=== PATIENT | male | born 2000 | race Caucasian/White ===

== ENCOUNTER 2024-05-17 16:44 | Emergency (ER) | payer BC, SELFPAY ==
--- NOTE | ~2024-05-17 | XR_ITS ---
EXAMINATION: XR HAND, RIGHT CLINICAL INFORMATION: Fourth/fifth metacarpal pain, injury. COMPARISON: None available. TECHNIQUE: PA, lateral, and oblique views of the right hand. FINDINGS: Displaced and angulated fracture of the mid shaft of the fifth metacarpal with surrounding soft tissue swelling. Otherwise, unremarkable. No unexpected radiopaque foreign bodies. XR/XR hand RT min 3V IMPRESSION: Displaced and angulated fracture of the fifth metacarpal. Electronically signed by: Trisha Cochran MD 05/17/2024 05:52 PM EDT
--- NOTE | ~2024-05-17 | XR_ITS ---
EXAMINATION: XR HAND, RIGHT CLINICAL INFORMATION: Reduction of fifth metacarpal fracture COMPARISON: Radiographs earlier today TECHNIQUE: PA, lateral, and oblique views of the right hand. FINDINGS: A fracture of the mid fifth metacarpal is again seen. There remains some overriding and ventral angulation of the distal fracture fragment slightly improved when compared to the prior. No other fractures are seen. Detail is obscured by the patient's splint XR/XR hand RT 2V IMPRESSION: Fifth metacarpal fracture with some improvement in alignment. Electronically signed by: Jaime Leal MD 05/17/2024 07:50 PM EDT
--- NOTE | 2024-05-17 16:54 | ED_ITS ---
HPI - Extremity Injury (Upper) General Chief Complaint: Extremity Injury, Upper Stated Complaint: hand inj Time Seen by Provider: 05/17/24 16:55 Source: patient Mode of arrival: ambulatory Limitations: no limitations History of Present Illness HPI narrative: Patient is a 23-year-old male right-hand dominant who presents emergency department for evaluation of a traumatic right hand injury. Reports prior to arrival, out of aggression he punched the shed resulting in localized swelling deformity and pain to the right dorsal aspect of his hand at the base of the 4th and 5th metacarpal. No numbness tingling or cold sensation to the hand Related Data Allergies Allergy/AdvReac Type Severity Reaction Status Date / Time No Known Allergies Allergy Verified 05/17/24 16:57 Review of Systems Review of Systems: Yes all other systems are reviewed and are negative [facility] Past Medical History Attestation statement: The following information was validated with the patient. Source: old records reviewed Social History Social History Smoked in Last 30 Days: No Use of substances other than those prescribed or required for medical reasons: No Advance Directives: No Advance Directives Information Provided: No Do you have a plan to hurt others: No Plan Physical Exam Vital Signs: Vital Signs: Last Vital Signs Temp 97.9 F 05/17/24 20:49 Pulse 90 05/17/24 20:49 Resp 18 05/17/24 20:49 BP 155/86 H 05/17/24 20:49 Pulse Ox 99 05/17/24 20:49 O2 Del Method Room Air 05/17/24 20:49 BMI result Body Mass Index 23.1 Appearance: Alert.?Oriented to person, place and time. No acute distress.?Normal affect.?? CVS: Heart sounds normal. Normal heart rate and rhythm.? Pulses normal.?? Respiratory: No respiratory distress.? Lung sounds clear to auscultation bilaterally?? Skin: Skin warm and dry.? Normal skin color.? Extremities: Swelling ecchymosis and hematoma to the dorsal aspect of the right hand over the 4th and 5th metacarpal. Decreased AROM to the digits. No wrist pain. 2+ radial pulse. Neuro: Moves all extremities spontaneously. Sensation intact bilaterally. Ambulates with normal steady gait. Medications Administered Discontinued Medications Generic Name Dose Route Start Last Admin Trade Name Freq PRN Reason Stop Dose Admin Lidocaine HCl 10 ml 05/17/24 17:53 05/17/24 18:56 Lidocaine Hcl 1 % Mpf 5 Ml Vial SUBCUT 05/17/24 17:54 10 ml ONCE ONE Administration Medical Decision Making Medical Decision Making MDM Narrative: Patient is a 23-year-old male presents emergency department for evaluation of traumatic right hand pain as per HPI. Extremity is neurovascularly intact distally. XR was obtained evaluate for fracture/dislocation; revealing a displaced 5th metacarpal shaft fracture with dorsal angulation of the distal portion. Attempted manual reduction with hematoma block as per procedural portion of this note, placed in an ulnar gutter splint, postreduction x-ray with some improvement in alignment. Patient tolerated procedure well, declined further attempt for reduction, will have close outpatient follow-up with orthopedics. Reviewed strict return precautions worrisome signs and symptoms that would warrant re-evaluation Differential Diagnosis Differential Diagnoses: The differential diagnosis associated with the presentation includes (Fracture, dislocation, contusion, hematoma, sprain) Independent Interpretation I performed an independent interpretation of an: Plain X-Ray (See narrative abo ve) Radiology Impression Discussion of test interpretation with radiology: I have reviewed the radiologist's reading. Radiologist Impression: XR/XR hand RT min 3V IMPRESSION: Displaced and angulated fracture of the fifth metacarpal. XR/XR hand RT 2V IMPRESSION: Fifth metacarpal fracture with some improvement in alignment. External Record Review External record reviewed: Outpatient record Prescription Management I considered prescription management with: Pain Medication (Acetaminophen/ibuprofen) Procedures Orthopedic Fracture Reduction Fracture #1: Time Out Performed: Yes Side: right Fracture Reduction Location: metacarpal Analgesia: hematoma block (Lidocaine 1%, aseptic technique, skin cleansed with chlorhexidine) Technique: direct manipulation and traction/counter-traction Post Reduction X-rays Demonstrate: other (Slight improvement, declines further reduction attempt) Post-reduction neuro exam: intact Post-reduction vascular exam: intact Splint Applied: Yes Patient Tolerated Procedure: well Discharge Plan Discharge Clinical Impression: Fracture of metacarpal shaft Qualifiers: Encounter type: initial encounter Metacarpal bone: fifth Fracture type: closed Fracture alignment: displaced Laterality: right Qualified Code(s): S62.326A - Displaced fracture of shaft of fifth metacarpal bone, right hand, initial encounter for closed fracture Patient Disposition: Home, Self-Care Instructions: Hand Fracture (ED) Additional Instructions: You can take ibuprofen 200 mg, 3 tablets (600mg) every 6-8 hours as needed for pain, in addition to Tylenol 500 mg, 2 tablets (1,000mg) every 4-6 hours as needed for pain, but not to exceed 3 doses daily (3,000mg).? As discussed the splint must remain in place at all times until you are re- evaluated by orthopedics. It can not get wet. If you develop worsening pain, swelling, numbness to the hand, you should seek re-evaluation Call the orthopedics office 1st thing tomorrow morning Referrals: Deng Tinsley MD [Primary Care Provider] - Sherry Rosenthal MD [Physician] - Stand Alone Forms: Work/School Release Interventions: ED Discharge Assessment Last Done: 05/17/24 20:49 Discharge Date/Time: 05/17/24 20:50 Print Language: Romanian
[2024-05-17 16:56] VITALS: BP 153/85; PULSE 91; RESP 18; TEMP 36.3; O2SAT 100; BMI 23.1
[2024-05-17] MEDS: Lidocaine HCl 1 % MPF 5 ML VIAL 10 ML SUBCUT (18:56)
[2024-05-17 20:31] VITALS: BP 155/86; PULSE 90; RESP 18; TEMP 36.6; O2SAT 99
[2024-05-17 20:49] VITALS: BP 155/86; PULSE 90; RESP 18; TEMP 36.6; O2SAT 99
== END 2024-05-17 20:50 | disposition home or self-care (01) ==
PROVIDERS: Emergency Provider Emergency Medicine; PCP Internal Medicine
DX: S62.326A Displaced fracture of shaft of fifth metacarpal bone, right hand, initial encounter for closed fracture (principal); M79.641 Pain in right hand; X58.XXXA Exposure to other specified factors, initial encounter; Y93.89 Activity, other specified; Y92.89 Other specified places as the place of occurrence of the external cause; Y99.8 Other external cause status
CPT/HCPCS: 26605; 73120; 73130; 99284

== ENCOUNTER 2024-05-20 10:17 | Outpatient (AMB) | payer BC, SELFPAY ==
[2024-05-20 10:29] VITALS: BMI 23.1
--- NOTE | 2024-05-20 10:29 | A.OFFVIS_ITS ---
Vital Signs 05/20/24 10:29 Height 5 ft 7 in Weight 147 lb 4 oz BMI 23.1 Intake Visit Reasons: FC- RT Fracture of metacarpal shaft Intake Note: Anton is a 23 year old right hand dominant female who presents today for an ED evaluation s/p displaced fracture of shaft of the fifth metacarpal bone on the right hand, DOI 05/17/24. Patient reports he punched a wall causing pain to his right 4th and 5th fingers. [facility] attemtped to reduce patient without success. Patient denies numbness and tingling. Patient states he has sensitivity at the fingertips. He is taking Ibuprofen and Tylenol for pain without relief. Patient states his pain has worsened since last night, waking him up through the night. Denies any prior injuries or surgeries to the right hand. Patient reports he vapes and smokes marijuana. Allergies No Known Allergies Allergy (Verified 05/20/24 10:34) HPI HPI FC- RT Fracture of metacarpal shaft: Details: Anton is a 23 year old right hand dominant man who presents for a right 5th metacarpal shaft fracture. He says he punched a shed wall on 05/17/24, injuring his hand. He was seen in the ED the same day where a reduction was attempted, and he was fitted for a splint. He presents today complaining of pain in his hand. He denies any numbness or tingling. He says he smokes cigarettes daily and Marijuana most nights before falling asleep. He says he is under a large amount of stress at home, which led to him punching a wall in frustration. He denies being involved in any fights. 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 Review of Systems Const All systems reviewed & are unremarkable except as noted in HPI and below Physical Exam Vital Signs: BMI result Body Mass Index 23.1 Const General: cooperative, healthy appearing and no acute distress Orientation/consciousness: patient oriented x3 HEENT Head: Yes normocephalic and Yes atraumatic Eyes EOM: EOMs intact bilaterally Resp Effort & Inspection: normal respiratory effort and able to speak in complete sentences Cardio Jugular venous distension: no JVD Skin General skin exam: turgor normal Rashes: no rashes Neuro General: patient oriented x3 Extrem Other: Evaluation of Right Upper Extremity: The patient is alert, oriented, and in no acute distress Sensation intact to the tips of all digits. He has some swelling & ecchymosis, in both the dorsal and volar aspect of the hand and fingers. We see some of the swelling and ecchymosis also over the middle and ring finger MCP joints. He also has some healing abrasions over the dorsal aspect of the middle ring and small fingers and dorsum of the hand. They appear to be healing with no evidence of infection and appeared to be partial-thickness. No lacerations or evidence of open injury near the fracture site. He does have some shortening of the small finger, and the fracture is palpable dorsally. Radiographs: 3 views of the right hand from 05/17/24 were reviewed by me today in clinic. They show a transverse 5th metacarpal shaft fracture, with with 100% dorsal translation of the distal shaft and a few mm of shortening Psych Appearance: grossly normal Affect: normal affect Attitude: cooperative Assessment & Plan Assessment & Plan (1) Fracture of shaft of fifth metacarpal bone of right hand: Code(s): S62.326A - Displaced fracture of shaft of fifth metacarpal bone, right hand, initial encounter for closed fracture Category: Medical Plan Assessment & Plan: 1. Right 5th metacarpal shaft fracture, with 100% dorsal translation of the mid shaft fracture and a few mm of shortening From a punching injury, DOI: 05/17/24 I educated him about this condition I discussed operative and non-operative treatment options, and recommend operative treatment. The patient would like to proceed with surgery The risks and benefits of operative treatment were discussed with the patient and the patient wishes to proceed with surgery. These risks include, but are not limited to risk of damage to blood vessels, nerves, tendons, infection, recurrence, incomplete relief of preoperative symptoms, persistent pain, possible need for further surgery and the risks associated with regional blocks and anesthesia. The plan is to take the patient to the operating room sometime on 05/21/24 for the following procedures: 1. Right 5th metacarpal CRPP vs ORIF, under general All of the preoperative paperwork including the consent was reviewed today. All the patient's questions were answered. The patient understands that they will be contacted by our surgery specialist soon to schedule this procedure He denies Diabetes, blood thinners, asthma, heart, lung, kidney issues He smokes cigarettes and Marijuana daily. I explained the effects of smoking on wound/bone healing, and recommend they stop smoking while healing. They expressed understanding He was placed in a new splint today. Scribed for Sherry Rosenthal MD by Jame Jin, medical education manager, on 05/20/24 at 10:40 AM, EST. Coding Level of Care Code New Pt Level 4 (57933) Diagnoses Fracture of shaft of fifth metacarpal bone of right hand S62.326A
== END 2024-05-20 11:15 | disposition home or self-care (01) ==
PROVIDERS: PCP Internal Medicine; Visit Provider Orthopaedic Surgery
DX: S62.326A Displaced fracture of shaft of fifth metacarpal bone, right hand, initial encounter for closed fracture (principal); W22.09XA Striking against other stationary object, initial encounter
CPT/HCPCS: 99204

== ENCOUNTER → 2024-05-20 10:17 | Outpatient (BNVA) | payer BC, SELFPAY | PROVIDERS: PCP Internal Medicine; Visit Provider Orthopaedic Surgery ==

== ENCOUNTER 2024-05-21 06:43 | Day surgery (SDC) | payer BC, SELFPAY ==
--- NOTE | 2024-05-20 13:25 | HO.ANESPROP2 ---
Documented by User: Ashleigh Adam NP 05/20/24 13:26 HPI - Anesthesia Eval Consult details Narrative: 23yo M for Right 5th Metacarpal CRPP vs ORIF PMFSH Active Problems Active Problems: All Active Problems Fracture of shaft of fifth metacarpal bone of right hand (Acute) Past Medical History Medical History Smoker Social History Social History Tobacco use type: Smokeless Tobacco Smoked in Last 30 Days: Yes Use of substances other than those prescribed or required for medical reasons: Unknown Have you been hit, kicked, punched, or otherwise hurt by someone within the past year? 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 Allergies Allergy/AdvReac Type Severity Reaction Status Date / Time No Known Allergies Allergy Verified 05/20/24 10:34 Home Medications ?Medication ?Instructions ?Recorded ?Confirmed ?Last Taken ?Type No Known Home Meds 05/20/24 05/20/24 Unknown History Assessment and Plan Assessment Anesthesia Assessment: Chart Reviewed Documented by User: Rocio Chapin MD 05/21/24 08:45 PMFSH Past Medical History Medical History Smoker Family History Family history of problems with anesthesia: No Surgical History History of Problems with Anesthesia: No Social History Social History Tobacco use type: Smokeless Tobacco Smoked in Last 30 Days: Yes Use of substances other than those prescribed or required for medical reasons: Unknown Have you been hit, kicked, punched, or otherwise hurt by someone within the past year? 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 Allergies Allergy/AdvReac Type Severity Reaction Status Date / Time No Known Allergies Allergy Verified 05/20/24 10:34 Home Medications ?Medication ?Instructions ?Recorded ?Confirmed ?Last Taken ?Type No Known Home Meds 05/20/24 05/20/24 Unknown History Exam Airway Mallampati Class: II TM Dist: >3cm Neck ROM: Full Heart: rrr Lungs: cta Assessment and Plan Assessment Anesthesia Assessment: Anesthesia Plan Discussed Final Anesthetic Review Family History of Problems with Anesthesia: No History of Problems with Anesthesia: No NPO: Yes ASA Class: I Final Preanesthetic Review: No Changes in Pt Med Stat, Meds/Allgs Chart Reviewed, Consent Obtained/Reviewed and Anes Risks/Benef Reviewed Patient Risk: Low Procedure Risk: Low Anesthetic Plan Anesthetic Plan: MAC: Disposition: Standard PACU
[2024-05-21 06:55] VITALS: BP 153/82; PULSE 75; RESP 18; TEMP 36.9; O2SAT 99; BMI 23.2
[2024-05-21] MEDS: Lactated Ringers 1,000 ML 100 ML IVCONT (07:22)
--- NOTE | 2024-05-21 08:01 | MHC.SHP ---
Pre-Procedural Eval Section A - 24 Hr Update-Section A only Date of Service: 05/21/24 The patient is an INPATIENT: No Changes since office visit: No Cold of Flu in the past 2 weeks, No New Medical Problems, No Changes in Medication and No Patient answered all questions The patient has been examined within 24 hours of the surgical procedure. The History & Physical has been completed within 30 days and I have reviewed it.: Yes Section B - Complete if H&P > 30 days Chief Complaint: Displaced fracture of shaft of fifth metacarpal Allergies: Allergies Allergy/AdvReac Type Severity Reaction Status Date / Time No Known Allergies Allergy Verified 05/20/24 10:34 Plan I have reviewed the history and physical and performed a pertinent physical examination on my patient. No changes have occurred unless specified. Time Spent With Patient Time: Total time managing care of this patient today ____ minutes.
--- NOTE | 2024-05-21 08:01 | W.PM.OPN ---
Operative Note Operative Note Date of Service: 05/21/24 Narrative: Operative Note Narrative: Preop diagnosis: 1. Right 5th metacarpal shaft fracture Postop diagnosis: Same Procedure: 1. Right 5th Metacarpal shaft fracture open reduction internal fixation 2. Ulnar nerve block Surgeon: Sherry Rosenthal MD Business Coordinator: Nitish TITUS Anesthesia: General Anesthesia Findings: Metacarpal fracture Implants: 0.045 K-wire x1 Tourniquet time: None EBL: Minimal Specimen: None Drains: None Complications: None Disposition: Brought to the recovery room in stable condition Plan: Follow-up in 10-14 days for a wound check, postop radiographs and for placement in a short-arm finger spica cast incorporating just the small and ring finger at that time. Anticipate K-wire removal in 4-5 weeks based on interval bony healing Educate the patient that full fracture healing anticipated in approximately 8-12 weeks. Indications: The patient is 23 years old with displaced right 5th metacarpal shaft fracture . The risks and benefits of operative treatment, including but not limited to risk of damage to blood vessels, nerves, tendons, infection, recurrence, delayed or nonunion of fracture, persistent pain or numbness, incomplete resolution of preoperative symptoms, or need for further surgery were discussed with the patient and they wished to proceed with surgery. Procedure: Once consent was obtained patient was brought back to the operating suite and placed in the operating table in a supine position. . Perioperative antibiotics and general anesthesia was administered by the anesthesia team. A tourniquet was applied to the proximal aspect of the right upper extremity and the limb was prepped and draped in a standard surgical fashion. Tourniquet was not inflated during the case. The FluoroScan was used during the case to assist with our fracture reduction and placement of all implants. A closed reduction was attempted on the patient's right 5th metacarpal shaft fracture, but was not successful. I therefore elected to treat this with an open reduction internal fixation. 0.045 K-wire was placed through the head of the 5th metacarpal and advanced retrograde down the shaft to the fracture site. The limb was then elevated and exsanguinated with an Esmarch bandage and the tourniquet inflated for a total tourniquet time of 17 minutes. I made a 2.5 cm longitudinal incision centered over the dorsal aspect of the 5th metacarpal shaft fracture. The incision was made through the skin to the subcutaneous tissues using a 15. Blade. I then carefully dissected down to the level of the 5th metacarpal shaft fracture. The extensor tendons were retracted and protected. The shaft fracture was 100% displaced and the distal end of the fracture sitting in the interosseous muscle which was torn. An open reduction was performed after removal of interosseous muscle from the fracture site. I then advanced the 0.045 K-wire retrograde across the fracture site and down to the base of the 5th metacarpal. Fracture alignment was assessed both radiographically and clinically for both angular and rotational malalignment. Once satisfied with our fracture reduction and implant placement, the K-wire was bent and cut short and pin caps applied. Final fluoroscopic images were then obtained. The wound was copiously irrigated with normal saline. An ulnar nerve block was then performed by infiltrating about the ulnar nerve at the wrist with some 1% lidocaine with epinephrine for postop pain control. A Sterile dressing and dorsal blocking splint was applied. The patient appears to have tolerated the procedure well and with no complications. All digits were well vascularized at the conclusion of the case.
--- NOTE | 2024-05-21 09:08 | PC.NURSE ---
pt recieved a little of fluid anesthesia aware
[2024-05-21 10:48] VITALS: BP 137/77; PULSE 63; RESP 16; TEMP 37.1; O2SAT 100
[2024-05-21 10:50] VITALS: BP 145/79; PULSE 74; RESP 16; O2SAT 100
[2024-05-21 10:55] VITALS: BP 143/86; PULSE 68; RESP 16; O2SAT 100
[2024-05-21 11:00] VITALS: BP 136/84; PULSE 66; RESP 16; O2SAT 100
[2024-05-21 11:15] VITALS: BP 136/86; PULSE 68; RESP 16; TEMP 36.6; O2SAT 100
== END 2024-05-21 11:49 | disposition home or self-care (01) ==
PROVIDERS: PCP Internal Medicine; Visit Provider Orthopaedic Surgery
PROC: (CPT 26615; principal; 2024-05-21 08:40)
DX: S62.326A Displaced fracture of shaft of fifth metacarpal bone, right hand, initial encounter for closed fracture (principal); X58.XXXA Exposure to other specified factors, initial encounter; Y93.89 Activity, other specified; Y92.89 Other specified places as the place of occurrence of the external cause; Y99.8 Other external cause status; F17.210 Nicotine dependence, cigarettes, uncomplicated
CPT/HCPCS: 26615; J0131; J0690; J1100; J2003; J2004; J2405; J2704; J3010

== ENCOUNTER → 2024-05-21 06:43 | Outpatient (BNV) | payer BC, SELFPAY | PROVIDERS: PCP Internal Medicine; Visit Provider Orthopaedic Surgery | DX: S62.326A Displaced fracture of shaft of fifth metacarpal bone, right hand, initial encounter for closed fracture (principal) | CPT/HCPCS: 26615 ==

== ENCOUNTER 2024-06-03 11:57 | Outpatient (AMB) | payer BC, SELFPAY ==
--- NOTE | 2024-06-03 12:15 | A.OFFVIS_ITS ---
Intake Visit Reasons: PO RT 5th MC CRPP v ORIF 05/21/24 AR Intake Note: Anton is a 23 year old right hand dominant male who presents today post operatively s/p Right 5th Metacarpal shaft ORIF DOS: 05/21/24 w/ Dr Rosenthal. Patient reports he has been keeping his hand elevated daily, icing, and taking Tylenol and ibuprofen. He expresses daily intermittent pain, some days worse than other but mainly when he goes to bed is when it throbs the most. He says he is back at work and they have him move around a lot, he has been doing desk work and trying to have his co-workers help him. Allergies No Known Allergies Allergy (Verified 06/03/24 12:19) HPI HPI PO RT 5th MC CRPP v ORIF 05/21/24 AR: Details: Anton is a 23 year old right hand dominant man who returns S/P right 5th metaca rpal shaft ORIF, DOS: 05/21/24. He punched a shed wall on 05/17/24, injuring his hand. He presents today saying he is doing fine. He reports intermittent daily pain, but says this is worst at night when he feels it throbbing . He has been keeping his hand elevated and using ice & Tylenol for pain relief. He denies any numbness or tingling He says he smokes cigarettes daily and Marijuana most nights before falling asleep. He says he is under a large amount of stress at home. 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 He can bring his thumb, index, middle, and ring fingers closed to a fist and back to full extension. No tenderness about the fracture site with palpation about the ulnar side Abrasions over the MCP & PIP joints appear to be healing well Resolving ecchymosis Sensation is intact Cap refill is brisk Radiographs: 3 views of the right hand were taken and viewed by me today in clinic. They show a transverse 5th metacarpal shaft fracture, with satisfactory fracture reduction and position of the single K-wire Psych Appearance: grossly normal Affect: normal affect Attitude: cooperative Assessment & Plan Assessment & Plan (1) Fracture of shaft of fifth metacarpal bone of right hand: Code(s): S62.326A - Displaced fracture of shaft of fifth metacarpal bone, right hand, initial encounter for closed fracture Category: Medical Plan Assessment & Plan: 1. Right 5th metacarpal shaft fracture, S/P ORIF DOS: 05/21/24 From a punching injury, DOI: 05/17/24 The patient appears to be doing well post-operatively I educated him about the post-operative course I explained the signs and symptoms of infection, if the patient develops any new or worsening erythema, drainage, pain, or warmth they should contact the clinic or attend the ED. He was placed in a short arm finger spica cast, involving just the ring & small fingers, for the next 2 weeks. I discussed activity modifications, he is to lift nothing heavier than a cellphone for the next 4 weeks He will perform gentle ROM exercises at home He should avoid any underwater activities at this time He smokes cigarettes and Marijuana daily. I explained the effects of smoking on wound/bone healing, and recommend they stop smoking while healing. He expressed understanding and says he has been trying to cut back on his smoking. He will follow up in 2 weeks, with X-rays 3V attn R SF, OOP. Anticipate K-wire removal depending on bony healing, and a possible referral to OT hand therapy Scribed for Sherry Rosenthal MD by Jame Jin, medical program specialist, on 06/03/24 at 12:45 PM, EST. Orders: Orders XR hand RT min 3V Today M79.641 - Pain in right hand Scribe Plan - Not visible on output: Scribed for Sherry Rosenthal MD by Jame Jin medical program specialist, on [ ] at [ ], EST. Coding Level of Care Code Global (70153) Diagnoses Fracture of shaft of fifth metacarpal bone of right hand S62.326A
== END 2024-06-03 13:47 | disposition home or self-care (01) ==
PROVIDERS: PCP Internal Medicine; Visit Provider Orthopaedic Surgery
DX: S62.326A Displaced fracture of shaft of fifth metacarpal bone, right hand, initial encounter for closed fracture (principal)
CPT/HCPCS: 99024

== ENCOUNTER 2024-06-03 13:42 | Outpatient (REF) | payer BC, SELFPAY | END 2024-06-03 13:43 | disposition home or self-care (01) | LOC: HO.HOSX 13:42 | PROVIDERS: Visit Provider Orthopaedic Surgery | DX: M79.641 Pain in right hand (principal) | CPT/HCPCS: 73130 ==

== ENCOUNTER 2024-06-17 08:30 | Outpatient (AMB) | payer BC, SELFPAY ==
--- NOTE | 2024-06-17 08:34 | MHC.OFFVIS ---
Vital Signs 06/17/24 08:39 Height 5 ft 7 in Weight 148 lb BMI 23.2 Intake Visit Reasons: PO RT 5th MC CRPP v ORIF 05/21/24 AR Intake Note: Anton is a 23 year old right hand dominant male who presents today post operatively s/p right 5th metacarpal shaft ORIF DOS: 05/21/[address] Rosenthal. Patient reports he feels like his hand is healing. He continues to take Ibuprofen to help with the swelling. He states he barely has any pain. Cast removed in office today. Allergies No Known Allergies Allergy (Verified 06/03/24 12:19) HPI HPI PO RT 5th MC CRPP v ORIF 05/21/24 AR: Details: Anton is a 23 year old right hand dominant man who returns S/P right 5th metacarpal shaft ORIF, DOS: 05/21/24. He punched a shed wall on 05/17/24, injuring his hand. He presents today saying he is doing fine . He denies any numbness or tingling He says he smokes cigarettes daily and Marijuana most nights before falling asleep. He says he is under a large amount of stress at home. He says he has been trying to cut back on his smoking following his injury, and says he is now switch to pouches of chewing tobacco upon recommendations of a friend. 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 K-wire removed today in clinic, which he tolerated well He can bring his thumb, index, middle, and ring fingers closed to a fist and back to full extension. No tenderness about the fracture site with palpation about the ulnar side Abrasions over the MCP & PIP joints appear to be healed Resolved ecchymosis Sensation is intact Cap refill is brisk Radiographs: 3 views of the right hand were taken and viewed by me today in clinic. They show a transverse 5th metacarpal shaft fracture, with satisfactory fracture reduction, position of the single K-wire, and evidence of interval bony healing Psych Appearance: grossly normal Affect: normal affect Attitude: cooperative Assessment & Plan Assessment & Plan (1) Fracture of shaft of fifth metacarpal bone of right hand: Code(s): S62.326A - Displaced fracture of shaft of fifth metacarpal bone, right hand, initial encounter for closed fracture Category: Medical Plan Assessment & Plan: 1. Right 5th metacarpal shaft fracture, S/P ORIF DOS: 05/21/24 From a punching injury, DOI: 05/17/24 K-wire removed: 06/17/24 The patient appears to be doing well post-operatively I educated him about the post-operative course He will continue to wear his splint when out of the house for the next 2 weeks I discussed activity modifications, he is to lift nothing heavier than a cellphone for the next 2 weeks He will perform gentle ROM exercises at home I ordered OT hand therapy to work on ROM and normalizing function He should avoid any underwater activities for the next 5 days He smokes cigarettes and Marijuana daily. I explained the effects of smoking on wound/bone healing, and recommend they stop smoking , and also stop using chewing tobacco. He was given a note for work to continue light duty, with a 3lb weight limit, until his next appointment He will follow up in 4 weeks for a ROM check, no X-rays unless he has a new injury Scribed for Sherry Rosenthal MD by dafne Marie scribe, on 06/17/24 at 9:25 AM, EST. Orders: Orders XR hand RT min 3V Today M79.641 - Pain in right hand OT Evaluation and Treatment Today S62.326A - Displaced fracture of shaft of fifth metacarpal bone, right hand, initial encounter for closed fracture Scribe Plan - Not visible on output: Scribed for Sherry Rosenthal MD by Jame Jin durable medical equipment technician, on [ ] at [ ], EST. Coding Level of Care Code Global (96689) Diagnoses Fracture of shaft of fifth metacarpal bone of right hand S62.326A
[2024-06-17 08:39] VITALS: BMI 23.2
== END 2024-06-17 09:58 | disposition home or self-care (01) ==
LOC: HO.HOS 08:30
PROVIDERS: PCP Internal Medicine; Visit Provider Orthopaedic Surgery
DX: S62.326A Displaced fracture of shaft of fifth metacarpal bone, right hand, initial encounter for closed fracture (principal)
CPT/HCPCS: 99024

== ENCOUNTER 2024-06-17 15:36 | Outpatient (REF) | payer BC, SELFPAY | END 2024-06-17 15:37 | disposition home or self-care (01) | LOC: HO.HOSX 15:36 | PROVIDERS: Visit Provider Orthopaedic Surgery | DX: M79.641 Pain in right hand (principal) | CPT/HCPCS: 73130 ==

== ENCOUNTER 2024-07-15 09:39 | Outpatient (AMB) | payer BC, SELFPAY ==
--- NOTE | 2024-07-15 08:14 | A.OFFVIS_ITS ---
Vital Signs 07/15/24 09:45 Height 5 ft 7 in Weight 148 lb BMI 23.2 Intake Visit Reasons: PO RT 5th MC CRPP v ORIF 05/21/24 AR-w/out xray Intake Note: Anton is a 23 year old right hand dominant male who presents today post operatively s/p right 5th metacarpal shaft ORIF DOS: 05/21/[address] Rosenthal. Patient denies numbness, tingling, finger locking. Allergies No Known Allergies Allergy (Verified 07/15/24 09:46) HPI HPI PO RT 5th MC CRPP v ORIF 05/21/24 AR-w/out xray: Details: Anton is a 23 year old right hand dominant man who returns S/P right 5th metacarpal shaft ORIF, DOS: 05/21/24. He punched a shed wall on 05/17/24, injuring his hand. He presents today saying he is doing fine. He has been attending OT hand therapy and working on ROM exercises at home He denies any numbness or tingling He says he smokes cigarettes daily and Marijuana most nights before falling asleep. He says he is under a large amount of stress at home. 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 No swelling or erythema. He can make a tight fist and fully extend all his digits, including his small finger Fracture site completely non-tender Psych Appearance: grossly normal Affect: normal affect Attitude: cooperative Assessment & Plan Assessment & Plan (1) Fracture of shaft of fifth metacarpal bone of right hand: Code(s): S62.326A - Displaced fracture of shaft of fifth metacarpal bone, right hand, initial encounter for closed fracture Category: Medical Plan Assessment & Plan: 1. Right 5th metacarpal shaft fracture, S/P ORIF DOS: 05/21/24 From a punching injury, DOI: 05/17/24 K-wire removed: 06/17/24 The patient appears to be doing well post-operatively I educated him about the post-operative course I discussed activity modifications, he is to work on increasing his weight limit as tolerated over the next few weeks He will continue to work on ROM exercises at home He will continue to attend OT hand therapy to work on ROM and normalizing function He was given a note for work to return to full duty effective 07/16/24 He is happy with his care and with the plan. He will follow up prn Scribed for Sherry Rosenthal MD by Jame Jin, medical coding technician, on 07/15/24 at 9:55 AM, EST. Coding Level of Care Code Global (65099) Diagnoses Fracture of shaft of fifth metacarpal bone of right hand S62.326A
[2024-07-15 09:45] VITALS: BMI 23.2
== END 2024-07-15 09:59 | disposition home or self-care (01) ==
PROVIDERS: PCP Internal Medicine; Visit Provider Orthopaedic Surgery
DX: S62.326A Displaced fracture of shaft of fifth metacarpal bone, right hand, initial encounter for closed fracture (principal)
CPT/HCPCS: 99024

== ENCOUNTER 2024-08-20 07:56 | Outpatient (RCR) | payer BC, SELFPAY ==
--- NOTE | 2024-06-23 14:51 | MHC.OT.OEV ---
[address] [phone] F: [phone] Occupational Therapy Evaluation Patient Name: Anton Aldana Diagnosis: Fx of (R) 5th metacarpal Date of Onset: Date of Surgery: 05/21/24 Attending Provider: Sherry Rosenthal Prescribed Treatment: Follow Up Appointment: 07/15/24 History of Current Condition: 23 y/o M s/p FX of 5th metacarpal DOS: 05/21/[address] Rosenthal, GYPSY punching a shed. Pt presents with a 79% disability symptom score via the QUICKDASH reporting he is unable to use his (R) hand at all during daily tasks and he is extremely limited. Pt is currently wearing a soft splint during work and any heavy duty task. Pt is still working but on light duty working on computers or only using his (L) hand. Pt was highly IND prior to injury and due to reported home situation is currently still highly IND using (L) handed compensatory techniques but would like to regain full function of the (R) hand. Significant Medical History: none reported Precautions/Contraindications: 3lb weight restriction Patient Goals: Getting back to PLOF, full use of (R) hand. 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 Living Situation, Family and/or Social Support: Lives with mom, IND w/ ADL/IADL Works at [employer] [place] Current Level of Function and Occupation Self Care, Employment, Leisure: Mod(I) with ADL/IADL, uses (L) handed compensatory strategies Currently working, light duty using (L) handed compensatory techniques and computer stuff . Sleep: not impacted since cast came off Driving: (+) Vision: Balance: Pain Assessment Pain Score: 5 Pain Scale Used: Numeric (0 - 10) Pain Location and Description: at rest 0 movement or activity 5 sharp pain over incision site Aggravating Factors: Movement aggravates it. Alleviating Factors: Tylenol and ibuprofen PRN Skin and Soft Tissue Assessment Skin and Soft Tissue: Swelling Comments: Skin is intact no sign of infection mild swelling around (R) transmetacarpal area Nerve assessment Ulnar Nerve: Median Nerve: Radial Nerve: Comments: WFL Sensory Assessment Temperature: Light Touch: Proprioception: Vibration: Comments: Monofilament testing: WFL Edema Assessment Upper Extremity: Lower Extremity: Comments: (R) transmetacarpal 21.7cm (L) transmetacarpal 21cm Wrist distal radial styloid (R) 17cm (L)17cm Dexterity Assessment Dexterity: WFL Comments: 9 hole peg test (R) 14 seconds (L) 13 seconds Special Tests Comments: AROM(PROM) Strength Cervical Cervical Flexion: Cervical Extension: Cervical Lateral Flexion: Cervical Rotation: Comments: Shoulder Flexion: Extension: Abduction: Internal Rotation: External Rotation: Comments: Flexion: Extension: Abduction: Internal Rotation: External Rotation: Comments: Elbow Flexion: Extension: Pronation: Supination: Comments: Flexion: Extension: Pronation: Supination: Comments: Wrist Flexion: Extension: Ulnar Deviation: Radial Deviation: Comments: Flexion: Extension: Ulnar Deviation: Radial Deviation: Comments: Thumb Thumb CMC Flexion: Thumb MCP Flexion: Thumb IP Flexion: Radial Abduction: Palmar Abduction: Somers (Kapandji 0-10): 10 Comments: Digits Index MCP: PIP: DIP: Long MCP: PIP: DIP: Ring MCP: PIP: DIP: Small MCP: (R) 35* (L) 62* PIP: (R) 82* (L) 90* DIP: (R) 59* (L)62* Comments: Able to make submaximal full composite fist B/L Gross Grasp: (L) 100lbs Lateral Pinch: (L) 22lbs Two-Point Pinch: (L) 16lbs Three-Jaw Wil: (L) 18lbs Comments: unable to test (R), will test (R) at 6-8 weeks out Patient Education Primary Language: Transition Program Manager Required: No Current Knowledge: Understands information with skills for self-management Teaching Method: Demonstration Handouts Education Needs Identified on Evaluation: ADL's Equipment Use Exercise Pain Safety How did patient/family demonstrate learning? Patient demonstrates Patient verbalizes Barriers to Learning: None Readiness for Learning: Accepting Who was educated? Patient Comments: Plan of Care Assessment: 23 y/o M presents 4 weeks 5 days post op for (R) FX of 5th metacarpal pinning. Pt presents with functional deficits, decreased ROM in the hand, and scar tissue formation. Pt PLOF is highly IND in all ADL/IADL tasks and is currently mod(I) using (L) handed compensatory techniques during ADL/IADL, and work related tasks, pt currently is following a 3lb weight restriction in the (R) hand. In order to obtain PLOF, regain strength in the (R) hand, and return to full duty work, skilled OT services will be beneficial to increase strength and ROM to return to PLOF. Pt has strong rehab potential due to his age and motivation to return to prior level. Thank you for your referral. STG Duration: 2 weeks Short Term Goals: Pt will be IND and complaint w/ HEP Pt will be IND and complaint w/ self scar management Pt will report 1/10 pain with AROM LTG Duration: 4 weeks Assisted Goals: Pt will have 50* of SF MCP flexion to prepare for IADL participation Pt will achieve 90lbs of (R) handed watch technician strength to prepare for work related tasks Pt will be able to carry at least 25lbs floor to waist w/o pain in preparation for work related tasks. Frequency and Duration: The patient will be seen 2x a week for 4 weeks Treatment Plan: Therapeutic Exercise Therapeutic Activity Home Exercise Program Splinting Patient Education Desensitization/Sensory Re-ed Edema Control ADL Training Ultrasound Paraffin Fluidotherapy MHP Cold Packs Joint Mobilization Soft Tissue Mobilization Kinesiotaping Other (see comments) Skilled OT and treat Electronically Signed By: Estefani Hope OT/s Reviewed/agree with student documentation: Yes Therapist: Ashleigh Colmenares, OTR/L, CLT Please sign and return to therapist, Thank you for your referral.
--- NOTE | 2024-08-10 09:16 | MHC.OT.OP ---
[address] [phone] F: [phone] Occupational Therapy Progress Note Patient Name: Anton Aldana Diagnosis: Fx of (R) 5th metacarpal Date of Surgery: 05/21/24 Date of Evaluation: 06/23/24 Treatments to Date: 10 Cancellations to Date: No Shows to Date: Subjective: Will this bump go away? Pain Score: 0 Pain Location: (R) SF metacarpal Objective Measures: Monofilament testing: WFL Status: Progressing Assessment: Patient was seen for skilled OT progress note. At this time patient is making consistent progress towards his LTGS achieving all of his STGs. He reports no pain and states he is able to use his had during ADLs. His Quick DASH score has improved as he achieved 11.4% a significant improvement from his initial evaluation score of 79%. Therapist and patient discussed on focusing on strengthening for the remainder of his appointments and he will then be d/c. Short Term Goals: Pt will be IND and complaint w/ HEP -MET Pt will be IND and complaint w/ self scar management-MET Pt will report 1/10 pain with AROM -MET (0/10) Fpc Goals: Pt will have 50* of SF MCP flexion to prepare for IADL participation -MET Pt will achieve 90lbs of (R) handed ditch inspector strength to prepare for work related tasks Pt will be able to carry at least 25lbs floor to waist w/o pain in preparation for work related tasks. Frequency and Duration: The patient will be seen 2x a week for 2 more weeks Treatment Plan: Therapeutic Exercise Therapeutic Activity Home Exercise Program Patient Education Desensitization/Sensory Re-ed Edema Control ADL Training Ultrasound NMES Iontophoresis Paraffin Fluidotherapy MHP Cold Packs Joint Mobilization Soft Tissue Mobilization Kinesiotaping Other (see comments) Skilled OT and treat Electronically Signed By: ASHLEY Tan CLT Reviewed/agree with student documentation: Yes Therapist: GERALDINE Tan/JEANA Valentine
--- NOTE | 2024-08-20 08:20 | MHC.OT.DC ---
[address] [phone] F: [phone] Occupational Therapy Discharge Note Patient Name: Anton Aldana Provider: Sherry Rosenthal Diagnosis: Fx of (R) 5th metacarpal Date of Surgery: 05/21/24 Date of Evaluation: 06/23/24 Date of Discharge: Treatments to Date: 12 Cancellations to Date: No Shows to Date: Discharge Status: Achieved Goals Improved Function Independent with HEP Discharge Summary: Patient is discharged from skilled OT as he has achieved all of his goals. He was a pleasure to work with. Electronically Signed By: GERALDINE Tan/JEANA Valentine Reviewed/agree with student documentation: Yes Therapist: GERALDINE Tan/Meme, JEANA Please Sign and return to therapist, thank you for your referral.
== END 2024-08-20 08:20 | disposition home or self-care (01) ==
LOC: HO.OT 07:56
PROVIDERS: PCP Internal Medicine; Visit Provider Orthopaedic Surgery
DX: S62.326A Displaced fracture of shaft of fifth metacarpal bone, right hand, initial encounter for closed fracture (principal)
CPT/HCPCS: 97035; 97110; 97140; 97165; 97535

== ENCOUNTER 2024-11-04 08:07 | Outpatient (REF) | payer BC, SELFPAY ==
--- NOTE | ~2024-11-04 | XR_ITS ---
CLINICAL HISTORY: M79.641 - Pain in right hand 4 view right hand Comparison: DX/SR - XR HAND RT MIN 3V - 06/17/24 08:31 EDT Findings: There is a acute versus persistent fracture involving the mid-diaphysis of the 5th metacarpal. Previously there was Garrett wire fixation of a fracture at this site. There is some osseous bridging along the ventral surface of the bone suggesting this may represent partial nonunion. Bones are otherwise intact. No significant degenerative change. No radiopaque foreign body. IMPRESSION: 1. Persistent fracture line involving the mid diaphysis of the right 5th metacarpal. There does appear to be some osseous bridging along the volar surface suggesting this is partial nonunion rather than acute injury. Correlate for any acute injury. This document has been electronically signed by: Augusta Brady MD on 11/05/2024 09:07:46
== END 2024-11-04 08:08 | disposition home or self-care (01) ==
LOC: HO.HOSX 08:07
DX: M79.641 Pain in right hand (principal); S62.326D Displaced fracture of shaft of fifth metacarpal bone, right hand, subsequent encounter for fracture with routine healing; Z98.890 Other specified postprocedural states
CPT/HCPCS: 73130

== ENCOUNTER 2024-11-04 08:30 | Outpatient (AMB) | payer BC, SELFPAY ==
--- NOTE | 2024-11-04 08:33 | MHC.OFFVIS ---
Vital Signs 11/04/24 08:44 Height 5 ft 7 in Weight 148 lb BMI 23.2 Handedness Right Intake Visit Reasons: OV- Reinjury, RT 5th MC CRPP v ORIF 05/21/24 AR Intake Note: Anton is a 23 year old right hand dominant male who presents today post operatively s/p right 5th metacarpal shaft ORIF DOS: 05/21/[address] Rosenthal. Patient reports he re injured his hand while ice fishing on 11/01/24. He is having pain but it has gotten slightly better. Allergies No Known Allergies Allergy (Verified 11/04/24 08:44) HPI HPI OV- Reinjury, RT 5th MC CRPP v ORIF 05/21/24 AR: Details: Anton is a 23 year old right hand dominant male who presents today post operatively s/p right 5th metacarpal shaft ORIF DOS: 05/21/[address] Rosenthal. Patient reports he re injured his hand while ice fishing on 11/01/24. He is having pain but it has gotten slightly better. Patient expresses concern that he require repeat surgery. No other acute complaints or concerns at this time. 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 Neuro: Normal sensation of the tips of all digits of the right hand at this time Vascular: Cap refill brisk Pain: Patient reports mild tenderness palpation about the right 5th metacarpal shaft ROM: Patient is able to make closed fist extend all digits of the right hand Skin: No lacerations or abrasions. General: There is noted to be some resolving ecchymosis and edema over the right 5th metacarpal shaft No erythema or other evidence of infection Psych: Appears grossly normal Affect normal Attitude cooperative Office Procedures AMB Fracture Care Fracture Billing Code: Fracture Billing Code Results Reviewed Results Reviewed: X-rays obtained in the office today and independently reviewed by me, Nitish Angela PA-C, demonstrate nondisplaced fracture of the right 5th metacarpal shaft in the area of previous fracture. Assessment & Plan Assessment & Plan (1) Fracture of shaft of fifth metacarpal bone of right hand: Code(s): S62.326A - Displaced fracture of shaft of fifth metacarpal bone, right hand, initial encounter for closed fracture Category: Medical Plan 1. Right 5th metacarpal shaft fracture Date of injury 11/01/2024 Re-injury from previous fracture that was status post CRPP on 05/21/2024 Patient is educated about this injury Patient is educated about the typical treatment course At this time, patient was informed that he will require no surgical intervention at this time, as the fracture is nondisplaced Patient was placed into a ulnar gutter splint Patient is educated on proper cast care and precautions Patient will follow-up in 1 week with repeat x-rays and splint removal, anticipate cast placement at that time, sooner with any acute concerns Orders: Orders XR hand RT min 3V Today M79.641 - Pain in right hand Coding Level of Care Code Est Pt Level 3 (60454) Diagnoses Fracture of shaft of fifth metacarpal bone of right hand S62.326A CPT Codes Fracture Care - Fracture Billing Code: Fracture Billing Code ([id number])
[2024-11-04 08:44] VITALS: BMI 23.2
== END 2024-11-04 09:19 | disposition home or self-care (01) ==
LOC: HO.HOS 08:31
PROVIDERS: PCP Internal Medicine
DX: S62.356A Nondisplaced fracture of shaft of fifth metacarpal bone, right hand, initial encounter for closed fracture (principal)
CPT/HCPCS: 26600; 99213

== ENCOUNTER → 2024-11-04 08:33 | Outpatient (BNV) | payer BC, SELFPAY | PROVIDERS: Visit Provider Radiology Diagnostic Radiology | DX: M79.641 Pain in right hand (principal) | CPT/HCPCS: 73130 ==

== ENCOUNTER 2024-11-12 08:19 | Outpatient (REF) | payer BC, SELFPAY ==
--- NOTE | ~2024-11-12 | XR_ITS ---
EXAMINATION: XR HAND 3 OR MORE VIEWS RIGHT HISTORY: M79.641 - Pain in right hand COMPARISON: Comparison is made with the prior examination dated 11/04/2024. FINDINGS: Three views of the right hand are submitted. Osseous mineralization is normal. Again seen is a transverse fracture of the midshaft of the 5th metacarpal. There is slightly greater callus formation noted, consistent with healing. The fracture line remains visible. The joint spaces are preserved. The soft tissues are unremarkable. XR/XR hand RT min 3V IMPRESSION: Healing transverse fracture of the midshaft of the 5th metacarpal. Electronically signed by: Cedric Carranza MD 11/12/2024 09:10 AM EDT
== END 2024-11-12 08:20 | disposition home or self-care (01) ==
LOC: HO.HOSX 08:19
DX: S62.326A Displaced fracture of shaft of fifth metacarpal bone, right hand, initial encounter for closed fracture (principal); X58.XXXA Exposure to other specified factors, initial encounter; Y93.89 Activity, other specified; Y92.9 Unspecified place or not applicable; Y99.9 Unspecified external cause status
CPT/HCPCS: 29085; 73130

== ENCOUNTER 2024-11-12 08:23 | Outpatient (AMB) | payer BC, SELFPAY ==
[2024-11-12 08:36] VITALS: BMI 23.2
--- NOTE | 2024-11-12 08:36 | A.OFFVIS_ITS ---
Vital Signs 11/12/24 08:36 Height 5 ft 7 in Weight 148 lb BMI 23.2 Intake Visit Reasons: OV-Rt 5th MC Fx Reinjury 11/01/24 Intake Note: Anton is a 24 year old right hand dominant male who presents today for a follow up of his right hand, about 6 months s/p Right 5th MC ORIF 05/21/24. At his last visit patient reported re-injuring the right hand while fishing on 11/01/24. He did re-fracture the 5th MC but the fracture was non-displaced so no surgical intervention was warranted. He was placed in a ulnar gutter splint. It is anticipated that he will transfer into a cast today. Patient reports he is doing well, states intermittent pain. He noticed swelling in his SF upon splint removal. Allergies No Known Allergies Allergy (Verified 11/12/24 08:47) HPI HPI OV-Rt 5th MC Fx Reinjury 11/01/24: Details: Anton is a 24 year old right hand dominant male who presents today for a follow up of his right hand, about 6 months s/p Right 5th MC ORIF 05/21/24. At his last visit patient reported re-injuring the right hand while fishing on 11/01/24. He did re-fracture the 5th MC but the fracture was non-displaced so no surgical intervention was warranted. He was placed in a ulnar gutter splint. It is anticipated that he will transfer into a cast today. Patient reports he is doing well, states intermittent pain. He noticed swelling in his SF upon splint removal. 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 Neuro: Normal sensation of the tips of all digits of the right hand at this time Vascular: Cap refill brisk Pain: Patient reports mild tenderness palpation about the right 5th metacarpal shaft ROM: Patient is able to make closed fist extend all digits of the right hand Skin: Old surgical scar noted over the dorsal right 5th metacarpal shaft No lacerations or abrasions. General: Ecchymosis over right 5th metacarpal shaft has resolved No erythema or other evidence of infection Psych: Appears grossly normal Affect normal Attitude cooperative Office Procedures Casting/Splints 93615-Mgau/Wrist Cast Application Procedure code (CPT) selection complete Results Reviewed Results Reviewed: X-rays obtained in the office today and independently reviewed by me, Nitish Angela PA-C, demonstrate nondisplaced fracture of the right 5th metacarpal shaft in the area of previous fracture. Assessment & Plan Assessment & Plan (1) Fracture of shaft of fifth metacarpal bone of right hand: Code(s): S62.326A - Displaced fracture of shaft of fifth metacarpal bone, right hand, initial encounter for closed fracture Category: Medical Plan 1. Right 5th metacarpal shaft fracture Date of injury 11/01/2024 Re-injury from previous fracture that was status post CRPP on 05/21/2024 Patient is educated about this injury Patient is educated about the typical treatment course At this time, patient was informed that he will require no surgical intervention at this time, as the fracture is nondisplaced Patient was placed into a ulnar gutter cast Patient is educated on proper cast care and precautions Patient will follow-up in 2-3 week with repeat x-rays, sooner with any acute concerns Orders: Orders XR hand RT min 3V Today M79.641 - Pain in right hand Coding Level of Care Code Global (64816) Diagnoses Fracture of shaft of fifth metacarpal bone of right hand S62.326A CPT Codes Casting - CPT: 64378-Fyns/Wrist Cast Application ([id number])
== END 2024-11-12 09:24 | disposition home or self-care (01) ==
LOC: HO.HOS 08:24
PROVIDERS: PCP Internal Medicine
DX: S62.326A Displaced fracture of shaft of fifth metacarpal bone, right hand, initial encounter for closed fracture (principal)
CPT/HCPCS: 29085; 99024

== ENCOUNTER → 2024-11-12 08:37 | Outpatient (BNV) | payer BC, SELFPAY | PROVIDERS: Visit Provider Radiology Diagnostic Radiology | DX: S62.326D Displaced fracture of shaft of fifth metacarpal bone, right hand, subsequent encounter for fracture with routine healing (principal) | CPT/HCPCS: 73130 ==

== ENCOUNTER 2024-11-18 14:58 | Outpatient (AMB) | payer BC, SELFPAY ==
--- NOTE | 2024-11-18 15:15 | A.OFFVIS_ITS ---
Intake Visit Reasons: OV cast change, Rt 5th MC Fx Reinjury 11/01/24 Intake Note: Anton is a 24 year old right hand dominant male who presents today for a follow up of his right hand, about 6 months s/p Right 5th MC ORIF 05/21/24. Patient reports that he has a burning sensation at the base of his 4th and 5th digits. Allergies No Known Allergies Allergy (Verified 11/18/24 15:25) HPI HPI OV cast change, Rt 5th MC Fx Reinjury 11/01/24: Details: Anton is a 24 year old right hand dominant male who presents today for a follow up of his right hand, about 6 months s/p Right 5th MC ORIF 05/21/24. Patient reports that he has a burning sensation at the base of his 4th and 5th digits. Patient states that he noticed a foul odor coming from the cast, and then he feels the cast has gotten dirty, so he wanted it to be changed. 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 Neuro: Normal sensation of the tips of all digits of the right hand at this time Vascular: Cap refill brisk Pain: Patient reports very mild tenderness palpation about the right 5th metacarpal shaft ROM: Patient is able to make closed fist extend all digits of the right hand Skin: Old surgical scar noted over the dorsal right 5th metacarpal shaft No lacerations or abrasions. General: Ecchymosis over right 5th metacarpal shaft has resolved No erythema or other evidence of infection Psych: Appears grossly normal Affect normal Attitude cooperative Office Procedures Casting/Splints 66863-Ngmt/Wrist Cast Application Procedure code (CPT) selection complete Assessment & Plan Assessment & Plan (1) Fracture of shaft of fifth metacarpal bone of right hand: Code(s): S62.326A - Displaced fracture of shaft of fifth metacarpal bone, right hand, initial encounter for closed fracture Category: Medical Plan 1. Fracture of right 5th metacarpal shaft Date of injury 11/01/2024 Patient is educated about this injury Patient is educated about the typical recovery course At this time, patient was placed once again into a short-arm ulnar gutter cast with the ring and small finger casted in flexion at the MCP joints Patient is educated on proper cast care and precautions Follow-up for previously scheduled appointment for reassessment, anticipate cast removal at that time, sooner with any acute concerns Coding Level of Care Code Global (57914) Diagnoses Fracture of shaft of fifth metacarpal bone of right hand S62.326A CPT Codes Casting - CPT: 56766-Atav/Wrist Cast Application ([id number])
== END 2024-11-18 16:14 | disposition home or self-care (01) ==
LOC: HO.HOS 14:58
DX: S62.326A Displaced fracture of shaft of fifth metacarpal bone, right hand, initial encounter for closed fracture (principal)
CPT/HCPCS: 29075; 99024

== ENCOUNTER → 2024-11-18 14:58 | Outpatient (BNVA) | payer BC, SELFPAY | DX: S62.326D Displaced fracture of shaft of fifth metacarpal bone, right hand, subsequent encounter for fracture with routine healing (principal) | CPT/HCPCS: 29075 ==

== ENCOUNTER 2024-11-27 07:42 | Outpatient (REF) | payer BC, SELFPAY ==
--- NOTE | ~2024-11-27 | XR_ITS ---
EXAMINATION: XR HAND 3 OR MORE VIEWS RIGHT HISTORY: M79.641 - Pain in right hand COMPARISON: Comparison is made with the prior examination dated 11/12/2024. FINDINGS: Three views of the right hand are submitted. Osseous mineralization is normal. Again seen is a transverse fracture of the midshaft of the 5th metacarpal. There appears to be slightly greater distraction on the current study, best appreciated on the oblique view. The joint spaces are preserved. The soft tissues are unremarkable. XR/XR hand RT min 3V IMPRESSION: Again seen is a fracture of the midshaft of the 5th metacarpal. There may be slightly increased distraction of the fragments when compared to the prior study. Electronically signed by: Cedric Cararnza MD 11/27/2024 08:40 AM EDT
== END 2024-11-27 07:43 | disposition home or self-care (01) ==
LOC: HO.HOSX 07:42
DX: M79.641 Pain in right hand (principal); S62.356D Nondisplaced fracture of shaft of fifth metacarpal bone, right hand, subsequent encounter for fracture with routine healing
CPT/HCPCS: 73130

== ENCOUNTER 2024-11-27 08:00 | Outpatient (AMB) | payer BC, SELFPAY ==
[2024-11-27 08:15] VITALS: BMI 23.2
--- NOTE | 2024-11-27 08:15 | MHC.OFFVIS ---
Vital Signs 11/27/24 08:15 Height 5 ft 7 in Weight 148 lb BMI 23.2 Intake Visit Reasons: OV-Rt 5th MC Fx Reinjury 11/01/24-w/xrays Intake Note: Anton is a 24 year old right hand dominant male who presents today post operatively s/p right 5th metacarpal shaft ORIF DOS: 05/21/[address] Rosenthal. On 11/18/24 patient was placed into a short-arm ulnar gutter cast with the ring and small finger casted in flexion at the MCP joints. Patient reports he is doing well. Denies any numbness, tingling, or pain. He states he uses Ibuprofen PRN with relief. Cast removed in office today. Allergies No Known Allergies Allergy (Verified 11/27/24 08:16) HPI HPI OV-Rt 5th MC Fx Reinjury 11/01/24-w/xrays: Details: Anton is a 24 year old right hand dominant male who presents today post operatively s/p right 5th metacarpal shaft ORIF DOS: 05/21/[address] Rosenthal. On 11/18/24 patient was placed into a short-arm ulnar gutter cast with the ring and small finger casted in flexion at the MCP joints. Patient reports he is doing well. Denies any numbness, tingling, or pain. He states he uses Ibuprofen PRN with relief. Cast removed in office today. 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 Neuro: Normal sensation of the tips of all digits of the right hand at this time Vascular: Cap refill brisk Pain: Patient reports no mild tenderness palpation about the right 5th metacarpal shaft ROM: Patient is able to make closed fist extend all digits of the right hand, but reports some discomfort in the small finger when doing so, worst on the dorsal aspect at the MCP joint and proximal phalanx Skin: Old surgical scar noted over the dorsal right 5th metacarpal shaft No lacerations or abrasions. General: Ecchymosis over right 5th metacarpal shaft has resolved No erythema or other evidence of infection Psych: Appears grossly normal Affect normal Attitude cooperative Results Reviewed Results Reviewed: X-rays obtained in the office today and independently reviewed by me, Nitish Angela PA-C, demonstrate nondisplaced fracture of 5th metacarpal shaft of right hand with evidence of good interval bony healing. Assessment & Plan Assessment & Plan (1) Fracture of shaft of fifth metacarpal bone of right hand: Code(s): S62.326A - Displaced fracture of shaft of fifth metacarpal bone, right hand, initial encounter for closed fracture Category: Medical Plan 1. Fracture of right 5th metacarpal shaft Date of injury 11/01/2024 Patient is educated about this injury Patient is educated about the typical recovery course At this time, patient removed from cast and given a Velcro wrist splint to wear with daytime activities Patient is also provided with kimber tape to kimber tape the ring and small fingers together during the day Referred to occupational therapy for range of motion and early strengthening of the right hand with 2 lb weight limit Continue 2 lb weight limit at work until follow-up Follow-up in 4 weeks for reassessment, sooner with any acute concerns Orders: Orders XR hand RT min 3V Today M79.641 - Pain in right hand OT Evaluation and Treatment Today S62.326A - Displaced fracture of shaft of fifth metacarpal bone, right hand, initial encounter for closed fracture Coding Level of Care Code Global (52389) Diagnoses Fracture of shaft of fifth metacarpal bone of right hand S62.326A
== END 2024-11-27 08:44 | disposition home or self-care (01) ==
LOC: HO.HOS 08:01
DX: S62.326A Displaced fracture of shaft of fifth metacarpal bone, right hand, initial encounter for closed fracture (principal)
CPT/HCPCS: 99024

== ENCOUNTER → 2024-11-27 08:11 | Outpatient (BNV) | payer BC, SELFPAY | PROVIDERS: Visit Provider Radiology Diagnostic Radiology | DX: M79.641 Pain in right hand (principal) | CPT/HCPCS: 73130 ==

== ENCOUNTER 2024-12-25 13:03 | Outpatient (REF) | payer BC, SELFPAY ==
--- NOTE | ~2024-12-25 | XR_ITS ---
EXAMINATION: XR HAND 3 OR MORE VIEWS RIGHT HISTORY: M79.641 - Pain in right hand COMPARISON: Comparison is made with the prior examination dated 11/27/2024. FINDINGS: Three views of the right hand are submitted. Osseous mineralization is normal. Again seen is a transverse fracture of the midshaft of the 5th metacarpal. There is greater bridging bone formation noted consistent with healing. The fracture line remains visible, however. The joint spaces are preserved. The soft tissues are unremarkable. XR/XR hand RT min 3V IMPRESSION: Healing transverse fracture of the midshaft of the 5th metacarpal. Electronically signed by: Cedric Carranza MD 12/25/2024 01:47 PM EDT
== END 2024-12-25 13:04 | disposition home or self-care (01) ==
LOC: HO.HOSX 13:03
DX: M79.641 Pain in right hand (principal)
CPT/HCPCS: 73130

== ENCOUNTER 2024-12-25 13:14 | Outpatient (AMB) | payer BC, SELFPAY ==
--- NOTE | 2024-12-25 13:27 | MHC.OFFVIS ---
Vital Signs 12/25/24 13:29 Height 5 ft 7 in Weight 148 lb BMI 23.2 Intake Visit Reasons: OV-Rt 5th MC Fx Reinjury 11/01/24-w/xrays Intake Note: Anton is a 24 year old right hand dominant male who presents today for a follow up visit s/p right 5th metacarpal shaft ORIF DOS: 05/21/[address] Rosenthal. Patient has been attending occupational therapy and reports that he is doing well, he is having mild pain - mostly at the end of OT. He comes out of his brace at home and for hygiene - while out of the brace her works on wrist ROM. Denies numbness and tingling. Allergies No Known Allergies Allergy (Verified 12/25/24 13:29) HPI HPI OV-Rt 5th MC Fx Reinjury 11/01/24-w/xrays: Details: Anton is a 24 year old right hand dominant male who presents today for a follow up visit s/p right 5th metacarpal shaft ORIF DOS: 05/21/[address] Rosenthal. Patient has been attending occupational therapy and reports that he is doing well, he is having mild pain - mostly at the end of OT. He comes out of his brace at home and for hygiene - while out of the brace her works on wrist ROM. Denies numbness and tingling. 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 Neuro: Normal sensation of the tips of all digits of the right hand at this time Vascular: Cap refill brisk Pain: Patient reports no mild tenderness palpation about the right 5th metacarpal shaft ROM: Patient is able to make closed fist extend all digits of the right hand fully and without difficulty Skin: Old surgical scar noted over the dorsal right 5th metacarpal shaft No lacerations or abrasions. General: Ecchymosis over right 5th metacarpal shaft has resolved No erythema or other evidence of infection Psych: Appears grossly normal Affect normal Attitude cooperative Results Reviewed Results Reviewed: X-rays obtained in the office today and independently reviewed by me, Nitish Angela PA-C, demonstrate nondisplaced fracture of 5th metacarpal shaft of right hand with evidence of good interval bony healing. Assessment & Plan Assessment & Plan (1) Fracture of shaft of fifth metacarpal bone of right hand: Code(s): S62.326A - Displaced fracture of shaft of fifth metacarpal bone, right hand, initial encounter for closed fracture Category: Medical Plan 1. Fracture of right 5th metacarpal shaft Date of injury 11/01/2024 Patient is educated about this injury Patient is educated about the typical recovery course At this time, patient removed from Velcro wrist splint except for an particularly high-risk situations Patient is also provided with kimber tape to kimber tape the ring and small fingers together with daytime activities Referred to occupational therapy for range of motion and early strengthening of the right hand with 10-15 lb weight limit 10-15 lb weight limit for the next 4 weeks Follow-up in 4 weeks for reassessment, sooner with any acute concerns Orders: Orders XR hand RT min 3V Today M79.641 - Pain in right hand Coding Level of Care Code Global (44097) Diagnoses Fracture of shaft of fifth metacarpal bone of right hand S62.326A
[2024-12-25 13:29] VITALS: BMI 23.2
== END 2024-12-25 13:56 | disposition home or self-care (01) ==
LOC: HO.HOS 13:14
DX: S62.326A Displaced fracture of shaft of fifth metacarpal bone, right hand, initial encounter for closed fracture (principal)
CPT/HCPCS: 99024

== ENCOUNTER → 2024-12-25 13:25 | Outpatient (BNV) | payer BC, SELFPAY | PROVIDERS: Visit Provider Radiology Diagnostic Radiology | DX: S62.320D Displaced fracture of shaft of second metacarpal bone, right hand, subsequent encounter for fracture with routine healing (principal) | CPT/HCPCS: 73130 ==

== ENCOUNTER 2025-01-15 08:40 | Outpatient (AMB) | payer BC, SELFPAY ==
--- NOTE | 2025-01-15 08:49 | A.OFFVIS_ITS ---
Vital Signs 01/15/25 08:50 Height 5 ft 7 in Weight 148 lb BMI 23.2 Handedness Right Intake Visit Reasons: OV-Rt 5th MC Fx Reinjury 11/01/24-w/xrays Intake Note: Anton is a 24 year old right hand dominant male who presents today for a follow up of his Right 5th MC ORIF 05/21/2024. He reinjured the right hand while fishing on 11/01/24. At last visit patient was informed that he may removed Velcro wrist splint for daily activity but wear it for more high risk situations. He was also provided with kimber tape for daytime activities. 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 Today, patient reports he is no longer kimber tapping. He denies numbness, tingling, or finger locking. 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 Initially identified during a past visit, the fracture was monitored with an X-ray showing healing progression. The patient describes intermittent weakness and occasional peculiar pain, particularly when lifting items. He denies baseline pain, numbness, or tingling. He has previously engaged in occupational therapy, which has been on hold for two weeks due to external commitments but expects to resume therapy soon. Radiographic evaluation shows significant healing progress, with substantial resolution of the fracture line. He maintains the ability to create a closed fist with normal digit sensation. Subtle weakness remains that may be attributed to the effects of previous splinting and casting. Review of Systems - Musculoskeletal: Reports intermittent weakness in the right hand; denies baseline pain, redness, numbness, or tingling. - Neurological: Denies loss of sensation in the tips of digits. Systems reviewed and are negative except as per HPI and below Physical Exam - Musculoskeletal- Function of right hand allows for a closed fist formation; pronation and supination are full and intact. Absence of redness, numbness, and tingling. Normal sensation in the tips of all digits. Results - Imaging: X-ray comparison from the prior visit on the reveals significant healing, with diminished fracture lines on the right fifth metacarpal. Procedure Plan The treatment plan for the patient's right fifth metacarpal fracture is to continue occupational therapy once he returns from his two-week absence, maintaining regular exercises during this period. Current imaging demonstrates excellent healing, negating immediate requirements for further imaging. A follow-up for range of motion assessment is scheduled in four weeks, with the option for the patient to cancel if the situation improves or they have no additional concerns. The necessity for further imaging is not anticipated unless new clinical indications arise. Patient was informed and verbally consented to the use of an ambient scribe for clinic note documentation during this visit. Discussion Notes During the visit, I thoroughly discussed the current status and improvements of the patient's right fifth metacarpal fracture, as noted in recent X-ray imaging. I emphasized the importance of continuing with occupational therapy and exercises during his temporary hiatus. I addressed the follow-up evaluation scheduled in four weeks, outlining that further imaging may not be needed unless new clinical signs suggest otherwise. The patient was informed of the ability to cancel if healing progresses and symptoms resolve. Any decision for additional evaluation was conveyed to be at his discretion, ensuring he comprehends the reasoning behind our current therapeutic approach. Patient Instructions - Continue occupational therapy exercises even while away from formal therapy sessions. - Follow up in four weeks for a range of motion check, and call to cancel this appointment if no concerns. - Resume therapy with the occupational therapist after returning from your absence. - Monitor for any signs of increased pain, weakness, or other concerns, and seek care if necessary. Orders: Orders XR hand RT min 3V Today M79.641 - Pain in right hand Coding Level of Care Code Global (87070) Diagnoses Fracture of shaft of fifth metacarpal bone of right hand S62.326A
[2025-01-15 08:50] VITALS: BMI 23.2
== END 2025-01-15 08:58 | disposition home or self-care (01) ==
LOC: HO.HOS 08:40
PROVIDERS: PCP Internal Medicine
DX: S62.326A Displaced fracture of shaft of fifth metacarpal bone, right hand, initial encounter for closed fracture (principal)
CPT/HCPCS: 99024

== ENCOUNTER → 2025-01-15 08:41 | Outpatient (BNV) | payer BC, SELFPAY | PROVIDERS: Visit Provider Specialist | DX: M79.641 Pain in right hand (principal); S62.306D Unspecified fracture of fifth metacarpal bone, right hand, subsequent encounter for fracture with routine healing | CPT/HCPCS: 73130 ==

== ENCOUNTER 2025-01-15 08:42 | Outpatient (REF) | payer BC, SELFPAY ==
--- NOTE | ~2025-01-15 | XR_ITS ---
CLINICAL HISTORY: M79.641 - Pain in right hand --- Additional Notes or Special Instructions: Attn [facility] 3 view right hand Comparison: 12/25/2024 Findings: There is healing of the 5th metacarpal fracture. The exam is otherwise unchanged IMPRESSION: 1. Healing 5th metacarpal fracture This document has been electronically signed by: Yonis Meza MD on 01/16/2025 10:14:12
== END 2025-01-15 08:43 | disposition home or self-care (01) ==
LOC: HO.HOSX 08:42
DX: M79.641 Pain in right hand (principal)
CPT/HCPCS: 73130

== ENCOUNTER 2025-02-11 07:57 | Outpatient (RCR) | payer BC, SELFPAY ==
--- NOTE | 2024-12-04 10:44 | MHC.OT.OEV ---
[address] [phone] F: [phone] Occupational Therapy Evaluation Patient Name: Anton Aldana Diagnosis: (R) refracture of 5th MC Date of Onset: 11/01/24 Date of Surgery: Attending Provider: Nitish Angela Prescribed Treatment: MD Follow Up Appointment: History of Current Condition: Patient is a 24 y/o male who was initially seen for right 5th metacarpal shaft ORIF DOS: 05/21/24; however on 11/01 he was ice fishing and smacked his hand while drilling a hole in the ice for ice fishing resulting in a refracture of the metacarpal. 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 Significant Medical History: Precautions/Contraindications: 3lb weight restriction Patient Goals: Hand Dominance: Right Observations: QuickDASH Score: 79.5 Prior Level of Function and Occupation Self Care, Employment, Leisure: (I)ADLs/IADLs Ice fishing, snowmobiling, mountain biking Living Situation, Family and/or Social Support: Lives with family Current Level of Function and Occupation Self Care, Employment, Leisure: mod (A) ADLs, max (A) IADLs not participating in leisure activities Sleep: Driving: (I) Vision: Balance: Pain Assessment Pain Score: 5 Pain Scale Used: Numeric (0 - 10) Pain Location and Description: 3/10 at rest 5/10 during activity aching Aggravating Factors: Alleviating Factors: Ibuprofen PRN Skin and Soft Tissue Assessment Skin and Soft Tissue: Comments: mild swelling on the dorsum on hand, ulnar side no redness or bruising observed Nerve assessment Ulnar Nerve: Median Nerve: Radial Nerve: Comments: Sensory Assessment Temperature: Light Touch: Proprioception: Vibration: Comments: Edema Assessment Upper Extremity: Right Impaired Lower Extremity: Comments: Dexterity Assessment Dexterity: Comments: Special Tests Comments: AROM(PROM) Strength Cervical Cervical Flexion: Cervical Extension: Cervical Lateral Flexion: Cervical Rotation: Comments: Shoulder Flexion: Extension: Abduction: Internal Rotation: External Rotation: Comments: WFL Flexion: Extension: Abduction: Internal Rotation: External Rotation: Comments: WFL Elbow Flexion: Extension: Pronation: Supination: Comments: WFL Flexion: Extension: Pronation: Supination: Comments: WFL Wrist Flexion: 77 Extension: 60 Ulnar Deviation: 15 Radial Deviation: 20 Comments: Flexion: Extension: Ulnar Deviation: Radial Deviation: Comments: Thumb Thumb CMC Flexion: Thumb MCP Flexion: Thumb IP Flexion: Radial Abduction: Palmar Abduction: [place] (Kapandji 0-10): Comments: Digits Index MCP: PIP: DIP: Long MCP: PIP: DIP: Ring MCP: PIP: DIP: Small MCP: 46 PIP: 80 DIP: 76 Comments: Can make a composite fist Gross Grasp: Lateral Pinch: Two-Point Pinch: Three-Jaw Wil: Comments: NOT AT ASSESSED AT THIS TIME Patient Education Primary Language: Luxembourgish Animal Attendant Required: No Current Knowledge: Understands information with skills for self-management Teaching Method: Verbal Education Needs Identified on Evaluation: ADL's Equipment Use Exercise Pain Safety How did patient/family demonstrate learning? Patient demonstrates Patient verbalizes Barriers to Learning: None Readiness for Learning: Accepting Who was educated? Patient Comments: Plan of Care Assessment: Based on initial OT evaluation patient is s/p 4 weeks refracture of the 5th MC presenting with impaired ROM, impaired strength, pain, and impaired performance during self care tasks. Quick DASH= 79.5% indicating patient perceived impairment of UE during self care tasks. Due to the documented impairments it is recommended that patient receive skilled OT in order for patient to achieve his PLOF of (I) during self care tasks. STG Duration: 2 weeks Short Term Goals: patient will report 3/10 pain during ADLs Patient will increase paraffiner strength to 50lbs. (when indicated) Patient will be (I) in edema techniques LTG Duration: 4 weeks Senior Care Goals: Patient will report 0/10 pain during ADLs Patient will be (I) with HEP Patient will report 40% or less on the Quick DASH indicating overall improvement of UE Frequency and Duration: The patient will be seen 2x a week for 6 weeks Treatment Plan: Therapeutic Exercise Therapeutic Activity Home Exercise Program Splinting Neuro Re-ed Patient Education Desensitization/Sensory Re-ed Edema Control ADL Training Ultrasound NMES Iontophoresis Paraffin Fluidotherapy MHP Cold Packs Joint Mobilization Soft Tissue Mobilization Kinesiotaping Other (see comments) Skilled OT eval and treat Electronically Signed By: Ashleigh Colmenares OTDarien/L, CLT Reviewed/agree with student documentation: Therapist: Please sign and return to therapist, Thank you for your referral.
--- NOTE | 2024-12-24 09:12 | MHC.OT.OP ---
[address] [phone] F: [phone] Occupational Therapy Progress Note Patient Name: Anton Aldana Diagnosis: (R) refracture of 5th MC Date of Surgery: Date of Evaluation: 12/03/24 Treatments to Date: 6 Cancellations to Date: No Shows to Date: Subjective: I am going fishing this weekend. Pain Score: 5 Pain Location: (R)hand Objective Measures: Status: Progressing Assessment: patient is 7 weeks s/p injury: At this time patient is progressing well in OT as he is complaint with his HEP and his AROM is WFLs. He is tolerating very gentle strengthening with yellow/ logan thera putty by raking his fingers. He is eager to progress and would like to progress his strengthening. OT will continue with therapy and progress strengthening as indicated. Short Term Goals: patient will report 3/10 pain during ADLs Patient will increase heat treater strength to 50lbs. (when indicated) Patient will be (I) in edema techniques [facility]ci Goals: Patient will report 0/10 pain during ADLs Patient will be (I) with HEP Patient will report 40% or less on the Quick DASH indicating overall improvement of UE Frequency and Duration: The patient will be seen 2x a week for 4 weeks Treatment Plan: Therapeutic Exercise Therapeutic Activity Home Exercise Program Splinting Patient Education Edema Control ADL Training Ultrasound NMES Iontophoresis Paraffin Fluidotherapy MHP Cold Packs Joint Mobilization Soft Tissue Mobilization Kinesiotaping Other (see comments) Skilled OT eval and treat Electronically Signed By: Ashleigh Colmenares OTR/L, CLT Reviewed/agree with student documentation: Therapist:
--- NOTE | 2025-02-11 15:29 | MHC.OT.DC ---
[address] [phone] F: [phone] Occupational Therapy Discharge Note Patient Name: Anton Aldana Provider: Nitish Angela Diagnosis: (R) refracture of 5th Date of Surgery: Date of Evaluation: 12/03/24 Date of Discharge: Treatments to Date: 14 Cancellations to Date: No Shows to Date: Discharge Status: Achieved Goals Improved Function Independent with HEP Discharge Summary: Patient is discharged from skilled OT as patient has made substantial progress towards his goals and has achieved his maximal potential during therapy. Patient was a pleasure to work with. Electronically Signed By: Ashleigh Colmenares OTR/Meme, CLT Reviewed/agree with student documentation: Therapist: Please Sign and return to therapist, thank you for your referral.
== END 2025-02-11 15:29 | disposition home or self-care (01) ==
LOC: HO.OT 07:57
PROVIDERS: PCP Internal Medicine
DX: S62.326D Displaced fracture of shaft of fifth metacarpal bone, right hand, subsequent encounter for fracture with routine healing (principal)
CPT/HCPCS: 97110; 97140; 97165

== ENCOUNTER 2025-02-12 14:15 | Outpatient (AMB) | payer BC, SELFPAY ==
[2025-02-12 14:47] VITALS: BMI 23.2
--- NOTE | 2025-02-12 14:47 | A.OFFVIS_ITS ---
Vital Signs 02/12/25 14:47 Height 5 ft 7 in Weight 148 lb BMI 23.2 Intake Visit Reasons: OV-Rt 5th MC Fx Reinjury 11/01/24 Intake Note: Anton is a 24 year old right hand dominant male who presents today for a follow up visit and range of motion check for his fracture of shaft of fifth metacarpal bone of right hand s/p re-injuring. States he is doing well, he does feel a little restriction when extending his ring and small finger. Allergies No Known Allergies Allergy (Verified 02/12/25 14:52) HPI HPI OV-Rt 5th MC Fx Reinjury 11/01/24: Details: Anton is a 24 year old right hand dominant male who presents today for a follow up visit and range of motion check for his fracture of shaft of fifth metacarpal bone of right hand s/p re-injuring the metacarpal on 11/01/2024.. States he is doing well, he does feel a little restriction when extending his ring and small finger. 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 Neuro: Normal sensation of the tips of all digits of the right hand at this time Vascular: Cap refill brisk Pain: No tenderness palpation about the right 5th metacarpal shaft ROM: Patient is able to make closed fist extend all digits of the right hand fully and without difficulty Skin: Old surgical scar noted over the dorsal right 5th metacarpal shaft No lacerations or abrasions. General: Ecchymosis over right 5th metacarpal shaft has resolved No erythema or other evidence of infection Psych: Appears grossly normal Affect normal Attitude cooperative Assessment & Plan Assessment & Plan (1) Fracture of shaft of fifth metacarpal bone of right hand: Code(s): S62.326A - Displaced fracture of shaft of fifth metacarpal bone, right hand, initial encounter for closed fracture Category: Medical Plan 1. Fracture of right 5th metacarpal shaft Date of injury 11/01/2024 Patient is educated about this injury Patient is educated about the typical recovery course Sean tape over the next 3-4 weeks in particularly high-risk situations, but otherwise no need We will be in a gradual return back to normal lifting at this time Patient is amenable To this plan Follow-up as needed Coding Level of Care Code Global (41623) Diagnoses Fracture of shaft of fifth metacarpal bone of right hand S62.326A
== END 2025-02-12 15:07 | disposition home or self-care (01) ==
LOC: HO.HOS 14:16
DX: S62.326A Displaced fracture of shaft of fifth metacarpal bone, right hand, initial encounter for closed fracture (principal)
CPT/HCPCS: 99213